=== PATIENT | female | born 1995 | race Caucasian/White ===

== ENCOUNTER 2023-09-21 02:36 | Emergency (ER) | payer OTHER ==
[~2023-09-21] VITALS: Ht 167.6 cm; Wt 79.8 kg
[2023-09-21 02:39] VITALS: BP 120/69; PULSE 77; RESP 18
== END 2023-09-21 03:12 | disposition home or self-care (01) ==
LOC: EDH 02:36
DX: H11.423 Conjunctival edema, bilateral (principal)
CPT/HCPCS: 99281